=== PATIENT | female | born 1965 | race Caucasian/White ===

== ENCOUNTER → 2018-07-08 | Outpatient (CLI) | payer BC ==
--- NOTE | 2018-07-08 16:59 | MR ---
EXAMINATION TYPE: MR brain wo con DATE OF EXAM: 07/08/2018 COMPARISON: NONE HISTORY: no prior, bilateral headaches TECHNIQUE: Multiplanar, multisequence images of the brain and brainstem is performed without IV contrast. FINDINGS: Diffusion weighted images demonstrate no evidence of a recent infarct or other diffusion ab normality. There is no extra-axial fluid collection. There is moderate burden nonspecific white fidel er change given the patient's age. The largest is seen within the right frontal lobe measuring 7 x 4 mm, and a subcortical location. The largest on the left is seen within the left parietal lobe measuri ng 5 x 5 mm on FLAIR and axial fat sat image 21. These predominate in a subcortical distribution and within the deep white matter although there are few periventricular foci present. The ventricular sys tem and cisternal spaces are normal in size and appearance. The brain volume is age appropriate. Midline structures demonstrate normal morphology. The craniocervical junction appears within normal limits. The dural venous sinuses appear patent. The visualized sinuses are clear and the globes are intact. IMPRESSION: 1. Moderate burden nonspecific white matter change. Although the differential is broad these most com monly related to demyelinating disease, sequela of microangiopathy or vasculitis. 2. No evidence of acute infarct, midline shift or mass effect.
== END | disposition home or self-care (01) ==
LOC: RADMRIMAIN 13:10
PROVIDERS: ATTEND Nurse Practitioner
DX: R90.89 Other abnormal findings on diagnostic imaging of central nervous system (principal); R51 Headache
CPT/HCPCS: 70551

== ENCOUNTER → 2019-09-21 | Outpatient (CLI) | payer OTHER ==
--- NOTE | 2019-09-21 10:54 | XR ---
EXAMINATION TYPE: XR abdomen 1V DATE OF EXAM: 09/21/2019 10:35 AM CLINICAL HISTORY: Left-sided nephrolithiasis TECHNIQUE: Single supine KUB image of the abdomen is obtained. COMPARISON: None. FINDINGS: There is a large calculus measuring 1.9 cm overlying the left renal shadow. Calculus overli es the right renal shadow measuring 0.6 cm. Small phleboliths are present within the the low pelvis. Moderate degree colonic fecal stasis. Cholecystectomy clips noted. No acute osseous pathology. Degene rative change of the spine at the lumbosacral junction is mild. IMPRESSION: Bilateral nephrolithiasis with calculus on the left measuring 1.9 cm and on the right anjana suring 0.6 cm.
== END | disposition home or self-care (01) ==
LOC: RADXRMAIN 10:21
PROVIDERS: ATTEND Urology
DX: N20.0 Calculus of kidney (principal)
CPT/HCPCS: 74018

== ENCOUNTER → 2019-10-01 | Outpatient (CLI) | payer OTHER ==
--- NOTE | 2019-10-01 11:05 | CT ---
EXAMINATION TYPE: CT abdomen pelvis wo con DATE OF EXAM: 10/01/2019 HISTORY: bilateral flank pain, history of known stones. CT DLP: 303.8 mGycm. Automated Exposure Control for Dose Reduction was Utilized. TECHNIQUE: CT scan of the abdomen and pelvis is performed without oral or IV contrast. COMPARISON: Abdominal x-ray September 21, 2019 FINDINGS: Within the limitations of a non-contrast study, the following observations are made. LUNG BASES: No significant abnormality is appreciated. LIVER/GB: Cholecystectomy clips are redemonstrated. PANCREAS: No significant abnormality is seen. SPLEEN: No significant abnormality is seen. ADRENALS: No significant abnormality is seen. KIDNEYS: Confirmation of roughly 17 mm calculus left kidney midpole level central pelvis coronal imag e 49. There are roughly 5 additional scattered calculi throughout the left kidney mid to lower pole l evel up to 6 mm in size axial image 56. There is 6 to 7 mm calculus mid to lower pole of the right ki dney coronal image 48 correlating with x-ray. There is asymmetric mild left-sided hydronephrosis. No significant hydroureter bilaterally. BOWEL: No significant abnormality is seen. GENITAL ORGANS: Uterus surgically absent or markedly atrophic with occasional scattered pelvic phlebo liths. LYMPH NODES: No greater than 1cm abdominal or pelvic lymph nodes are appreciated. OSSEOUS STRUCTURES: No significant abnormality is seen. OTHER: No significant additional abnormality is seen. IMPRESSION: Bilateral nephrolithiasis as detailed above. Confirmation of 17 mm central left renal pel sarbjit calculus causing asymmetric mild left-sided hydronephrosis.
== END | disposition home or self-care (01) ==
LOC: RADCTMAIN 10:35
PROVIDERS: ATTEND Urology
DX: N20.0 Calculus of kidney (principal); R10.9 Unspecified abdominal pain
CPT/HCPCS: 74176

== ENCOUNTER → 2019-10-10 | Outpatient (CLI) | payer OTHER ==
[2019-10-10 12:58] LABS: Basophils % (A) 0 %; Eosinophils # (A) 0.4 k/uL (0-0.7); Eosinophils % (A) 3 %; HCT 43.2 % (34.0-46.0); HGB 13.6 gm/dL (11.4-16.0); Lymphocytes # (A) 3.3 k/uL (1.0-4.8); Lymphocytes % (A) 22 %; MCH 29.6 pg (25.0-35.0); MCHC 31.4 g/dL (31.0-37.0); MCV 94.3 fL (80.0-100.0); Mean Platelet Volume 7.5; Monocytes # (A) 0.5 k/uL (0-1.0); Monocytes % (A) 4 %; Neutrophils # (A) 10.4 k/uL (1.3-7.7); Neutrophils % (A) 70 %; Platelet Count 293 k/uL (150-450); RBC 4.58 m/uL (3.80-5.40); WBC 14.8 k/uL (3.8-10.6)
[2019-10-10 13:17] LABS: ALT 13 U/L (4-34); AST 20 U/L (14-36); African American GFR (CKD) >90 (>60 ml/min/1.73 sqM); Albumin 4.6 g/dL (3.5-5.0); Alkaline Phosphatase 80 U/L (38-126); Amorphous Sediment,Urine Few /hpf; Anion Gap 8 mmol/L; Appearance,Urine Turbid (Clear); Bacteria,Urine Rare /hpf; Bilirubin,Urine Negative (Negative); Blood Urea Nitrogen 11 mg/dL (7-17); Blood,Urine Small (Negative); Calcium 9.7 mg/dL (8.4-10.2); Carbon Dioxide 25 mmol/L (22-30); Chloride 107 mmol/L (98-107); Color,Urine Yellow; Glucose 92 mg/dL (74-99); Glucose,Urine (UA) Negative (Negative); Ketones,Urine Negative (Negative); Leukocyte Esterase,Urine Trace (Negative); Mucus,Urine Rare /hpf; Nitrite,Urine Negative (Negative); Non-African American GFR(CKD) 88 (>60 ml/min/1.73 sqM); Potassium 4.3 mmol/L (3.5-5.1); Protein,Urine Trace (Negative); RBC,Urine 25 /hpf (0-5); Sodium 140 mmol/L (137-145); Specific Gravity,Urine 1.013 (1.001-1.035); Total Bilirubin 0.4 mg/dL (0.2-1.3); Total Protein 7.3 g/dL (6.3-8.2); Urobilinogen,Urine <2.0 mg/dL (<2.0); WBC,Urine 9 /hpf (0-5)
== END | disposition home or self-care (01) ==
LOC: LABPAT 10:32
PROVIDERS: ATTEND Urology
DX: Z01.818 Encounter for other preprocedural examination (principal); N20.0 Calculus of kidney; R31.0 Gross hematuria
CPT/HCPCS: 80053; 81001; 85025; 87086

== ENCOUNTER 2019-10-17 06:37 | Day surgery (SDC) | payer OTHER ==
[2019-10-15 13:34] VITALS: BMI 25.4
--- NOTE | 2019-10-16 09:42 | P.GSHP ---
History of Present Illness H&P Date: 10/16/19 54 yo female with a 17 mm renal pelvic stone left with multiple small satellites comes for a left pcnl to remove these symptomatic stones. We discussed all the treatment options to rid her of her painful stone and we have decided on pcnl left. The risks and complications have been discussed. - Constitutional Constitutional: Denies chills, Denies fever - EENT Eyes: denies blurred vision, denies pain Ears, nose, mouth and throat: Denies headache, Denies sore throat - Cardiovascular Cardiovascular: Denies chest pain, Denies shortness of breath - Respiratory Respiratory: Denies cough, Denies 7 - Gastrointestinal Gastrointestinal: Denies abdominal pain, Denies diarrhea, Denies nausea, Denies vomiting - Genitourinary (Female) Genitourinary: Denies dysuria, Denies hematuria - Genitourinary (Male) Genitourinary: Denies dysuria, Denies hematuria - Musculoskeletal Musculoskeletal: Denies myalgias - Integumentary Integumentary: Denies pruritus, Denies rash - Neurological Neurological: Denies numbness, Denies weakness - Psychiatric Psychiatric: Denies anxiety, Denies depression - Endocrine Endocrine: Denies fatigue, Denies weight change Past Medical History Additional Past Medical History / Comment(s): kidney stone, hx of migraines, daily headaches, states hx of lesions on brain that are benign History of Any Multi-Drug Resistant Organisms: None Reported Past Surgical History: Cholecystectomy, Hysterectomy, Orthopedic Surgery, Tonsillectomy Additional Past Surgical History / Comment(s): lithotripsies, rt trigger thumb Past Anesthesia/Blood Transfusion Reactions: No Reported Reaction Smoking Status: Current every day smoker - Past Family History Father Family Medical History: Cancer Additional Family Medical History / Comment(s): prostate Sister(s) Family Medical History: Cancer Additional Family Medical History / Comment(s): breast Medications and Allergies Home Medications Medication Instructions Recorded Confirmed Type Cannabidiol (Cbd) Extract 1 applic PO DAILY PRN 10/15/19 10/15/19 History [Epidiolex] Cholecalciferol [Vitamin D3 (25 1,000 unit PO DAILY 10/15/19 10/15/19 History Mcg = 1000 Iu)] HYDROcodone/APAP 7.5-325MG [Glen 1 tab PO Q6HR PRN 10/15/19 10/15/19 History 7.5-325] Bastian-3 Fatty Acids/Fish Oil [Fish 1 each PO DAILY 10/15/19 10/15/19 History Oil 1,000 mg Softgel] Topiramate [Topamax] 50 mg PO BID 10/15/19 10/15/19 History traZODone HCL 50 mg PO HS 10/15/19 10/15/19 History Allergies Allergy/AdvReac Type Severity Reaction Status Date / Time No Known Allergies Allergy Verified 10/15/19 13:23 Surgical - Exam - General well developed, well nourished, no distress - Eyes PERRL - ENT no hearing loss - Neck trachea midline - Respiratory normal expansion, normal respiratory effort - Cardiovascular Rhythm: regular - Abdomen Abdomen: soft, non tender - Integumentary no rash, no growths - Neurologic normal coordination, normal sensation - Musculoskeletal normal gait, normal posture - Psychiatric oriented to time, oriented to person, oriented to place, speech is normal, memory intact Results - Imaging CT scan - abdomen: report reviewed, image reviewed CT scan - pelvis: report reviewed, image reviewed Assessment and Plan Assessment: Impression: Left renal stone Plan: PCNL left
[~2019-10-17 06:37] MED LIST: HYDROmorphone 0.5 MG/0.5 ML SYRINGE IVP PRN; fentaNYL (PF) 50 MCG/ML 2 ML AMP IV PRN
[2019-10-17] MEDS ORDERED: ONDANSETRON 4 MG/2 ML VIAL IVP ONE (07:20)
[2019-10-17] MEDS ORDERED: DEXAMETHASONE SOD PHOSPHATE 10 MG/ML 1 ML VIAL IV ONE (07:20)
[2019-10-17] MEDS: LACTATED RINGERS 1,000 ML IV SCH (07:20)
[2019-10-17] MEDS ORDERED: LIDOCAINE 1% (10MG/ML) FOR IV START INTRADERMA ONE (07:20)
--- NOTE | 2019-10-17 07:49 | XR ---
EXAMINATION TYPE: XR KUB DATE OF EXAM: 10/17/2019 6:52 AM CLINICAL HISTORY: Kidney stone and flank pain. TECHNIQUE: Single supine KUB image of the abdomen is obtained. COMPARISON: CT abdomen and pelvis October 01, 2019. Abdominal x-ray September 21, 2019. FINDINGS: Redemonstration of dominant 18 mm calculus centrally in the left kidney. 2-3 smaller irregu lar calculi lower pole level left kidney are redemonstrated. Tiny calculi on CT less well-seen. Persistent 6 to 7 mm round calculus right kidney midpole level. Cholecystectomy clips redemonstrated. Overall nonobstructive bowel gas pattern. Osseous structures ar e intact. IMPRESSION: Stable left greater than right nephrolithiasis as detailed above.
[2019-10-17] MEDS ORDERED: GLYCOPYRROLATE 0.2 MG/ML 2 ML VIAL ONE (07:55)
[2019-10-17] MEDS ORDERED: ROCURONIUM BROMIDE 10 MG/ML 5 ML VIAL IV ONE (07:55)
[2019-10-17] MEDS ORDERED: NEOSTIGMINE 1 MG/ML 10 ML VIAL ONE (07:55)
[2019-10-17] MEDS ORDERED: SUCCINYLCHOLINE CHLORIDE 100 MG/5 ML SYR IV ONE (07:55)
[2019-10-17] MEDS ORDERED: PROPOFOL 10 MG/ML 20 ML VIAL IV ONE (07:55)
[2019-10-17] MEDS ORDERED: MIDAZOLAM 2 MG/2 ML VIAL ONE (07:55)
[2019-10-17] MEDS ORDERED: fentaNYL (PF) 50 MCG/ML 2 ML AMP ONE (07:55)
[2019-10-17] MEDS ORDERED: LIDOCAINE 1% INJ 10MG/ML (20 ML MDV) ONE (07:55)
[2019-10-17] MEDS ORDERED: IOPAMIDOL-370 50ML BTL MISCELLANE ONE (08:12)
[2019-10-17] MEDS ORDERED: ALPRAZolam 0.25 MG TAB PO PRN (09:48)
[2019-10-17] MEDS ORDERED: ONDANSETRON 4 MG/2 ML VIAL IVP PRN (09:49)
[2019-10-17] MEDS ORDERED: ACETAMINOPHEN TAB 325 MG TAB PO PRN (09:49)
[2019-10-17] MEDS ORDERED: MAG HYDROX/AL HYDROX/SIMETH 30 ML CUP PO PRN (09:49)
[2019-10-17] MEDS ORDERED: NALOXONE 0.4 MG/ML 1 ML VIAL IV PRN (09:51)
[2019-10-17] MEDS ORDERED: HYDROmorphone PCA 10 MG/50 ML BAG IV PRN (09:51)
[2019-10-17] MEDS ORDERED: KETOROLAC 30 MG/ML 1 ML VIAL IVP PRN (09:51)
--- NOTE | 2019-10-17 09:59 | P.OP ---
Date of Procedure: 10/17/19 Preoperative Diagnosis: left renal stone Postoperative Diagnosis: left renal stone Procedure(s) Performed: cysto, left ureteral cath placement, Lt percutanous nephrostolithotomy with us, placement of 10 fr n tube Anesthesia: MONICA Surgeon: Reyes Orozco Estimated Blood Loss (ml): 50 Pathology: other (Stone) Condition: stable Disposition: PACU Indications for Procedure: The patient is 54. She has a 17-18 mm left renal stone with some small lower pole calyceal satellites. She comes for percutaneous nephrostolithotomy because of pain Description of Procedure: Patient brought to the operating suite. Given general anesthesia. Placed in a frog position on the transport gurney with a sterile prep and drape. Cystoscopy 22-Portuguese sheath and Foroblique lens identifies a normal urethra. The left ureteral orifice is identified and intubated with a 5-Portuguese occluding balloon catheter. It is secured to a 16-Portuguese Rojas. The patient's placed in a prone position to care to airways and extremities. A sterile prep and drape was administered. Dr. Oneal of radiology performed percutaneous access to the left middle pole calyx. The track was dilated to 30- Portuguese. Through the 30-Portuguese sheath and introducer rigid instruments in the large renal pelvic stone was identified. It is broken and removed using ultrasound and graspers. Do an intraoperative nephrostogram and intraoperative nephroscopy. I do not see any remaining stone. I'm unable to get into the left lower pole calyx as the infundibulum is not identifiable and is extremely tiny based on the nephrostogram. The stone small so I will leave alone unless it becomes symptomatic. There is no remaining visible stone. The nephrostogram and fluoroscopy does not really identify the lower pole stone that was seen on computed tomography scan. A 10-Portuguese J nephrostomy tube was placed in the renal pelvis confirmed fluoroscopically. It is secured to the skin with 2-0 silk. It drained freely. The patient awake and returned recovery in good condition. Blood loss is approximately 50 mL. She'll be observed in the hospital overnight. Condition is good.
--- NOTE | 2019-10-17 10:08 | FL ---
EXAMINATION TYPE: FL Perc Nephrostomy New Access DATE OF EXAM: 10/17/2019 COMPARISON: CT 10/01/2019 HISTORY: Left nephrolithiasis PROCEDURE: Maximal barrier technique was utilized, hand hygiene obtained with soap and water and alcohol-based h and rub. The skin overlying the left kidney was localized using fluoroscopy and the overlying skin p repped and draped. Skin gaurav was made with a scalpel. Access was gained under fluoroscopy, following placement of a ureteral occlusion balloon by the referring clinician and instillation of air in the renal collecting system with a 21-gauge needle to the left kidney. A suitable posterior calyx was ch osen. A 0.018 inch wire was advanced. The access site was dilated , access site was upsized, urete r was selected with a 5 [place] Kumpe catheter and 0.035 inch angled Glidewire, sheath was advanced, s afety wire deployed and subsequently a sheath was advanced into the renal pelvis following dilation w ith balloon along the tract. The patient underwent nephrolithotomy by the referring clinician. The patient remained in stable condition without complication. The patient was discharged to observation in the care of anesthesia. 3 minutes 36 seconds fluoroscopy time, 5 intraoperative images document the procedure IMPRESSION: STATUS POST NEPHROSTOMY PLACEMENT FOR NEPHROLITHOTOMY WITH FLUOROSCOPIC GUIDANCE. THIS PROCEDURE PER FORMED BY THE UNDERSIGNED.
[2019-10-17] MEDS: DEXTROSE 5%-0.45% NACL 1,000 ML IV SCH ×2 (11:30→20:56)
[2019-10-17] MEDS ORDERED: traZODone HCL 100 MG TAB PO SCH (21:00)
[2019-10-17] MEDS: TOPIRAMATE 25 MG TAB PO SCH (21:44)
[2019-10-18] MEDS: DEXTROSE 5%-0.45% NACL 1,000 ML IV SCH (03:59)
[2019-10-18 04:37] VITALS: TEMP 97.7
[2019-10-18] MEDS: LACTATED RINGERS 1,000 ML IV SCH (06:12)
[2019-10-18] MEDS ORDERED: HYDROcodone/APAP 5-325MG 1 EACH TAB PO PRN (06:50)
--- NOTE | 2019-10-18 06:52 | P.DS ---
Providers Attending physician: Reyes Orozco Primary care physician: [facility] Course: Patient was admitted 10/17/2019 for left percutaneous nephrostolithotomy to a large left renal pelvic stone. This was done without problems. Postoperatively she did well with no fever. Pain was controlled with pain medicine. Urine is cleared. She is tolerating regular diet. I'll discontinue the IV Rojas and intravenous narcotics. If she does well she'll be discharged home later today. She'll follow-up in the office on Tuesday for catheter removal. Condition is good. Postoperative instructions were given. She was given a prescription of [place] upon discharge. Patient Condition at Discharge: Good Plan - Discharge Summary Discharge Rx Participant: Yes New Discharge Prescriptions: New HYDROcodone/APAP 5-325MG [[place] 5-325] 1 tab PO Q4HR PRN #14 tab PRN Reason: Pain No Action Cholecalciferol [Vitamin D3 (25 Mcg = 1000 Iu)] 1,000 unit PO DAILY Topiramate [Topamax] 50 mg PO BID HYDROcodone/APAP 7.5-325MG [[place] 7.5-325] 1 tab PO Q6HR PRN PRN Reason: Pain traZODone HCL 50 mg PO HS Currie-3 Fatty Acids/Fish Oil [Fish Oil 1,000 mg Softgel] 1 each PO DAILY Cannabidiol (Cbd) Extract [Epidiolex] 1 applic PO DAILY PRN PRN Reason: Pain ALPRAZolam [Xanax] 1 tab PO Q12HR PRN PRN Reason: Anxiety Discharge Medication List Cannabidiol (Cbd) Extract [Epidiolex] 1 applic PO DAILY PRN 10/15/19 [History] Cholecalciferol [Vitamin D3 (25 Mcg = 1000 Iu)] 1,000 unit PO DAILY 10/15/19 [History] HYDROcodone/APAP 7.5-325MG [[place] 7.5-325] 1 tab PO Q6HR PRN 10/15/19 [History] Currie-3 Fatty Acids/Fish Oil [Fish Oil 1,000 mg Softgel] 1 each PO DAILY 10/15/19 [History] Topiramate [Topamax] 50 mg PO BID 10/15/19 [History] traZODone HCL 50 mg PO HS 10/15/19 [History] ALPRAZolam [Xanax] 1 tab PO Q12HR PRN 10/17/19 [History] HYDROcodone/APAP 5-325MG [[place] 5-325] 1 tab PO Q4HR PRN #14 tab 10/18/19 [Rx] Follow up Appointment(s)/Referral(s): Reyes Orozco MD [STAFF PHYSICIAN] - 10/22/19 8:00 am (for nephrostomy tube removal) Discharge Disposition: HOME SELF-CARE
[2019-10-18] MEDS: TOPIRAMATE 25 MG TAB PO SCH (08:17)
[2019-10-18 08:51] VITALS: BP 92/61; PULSE 53; RESP 16
== END 2019-10-18 11:12 | disposition home or self-care (01) ==
LOC: OR 06:37 → 4SSUR 09:35 → OR 10-18 11:12
PROVIDERS: ATTEND Urology
DX: N20.0 Calculus of kidney (principal); F17.200 Nicotine dependence, unspecified, uncomplicated; G43.909 Migraine, unspecified, not intractable, without status migrainosus; Z79.899 Other long term (current) drug therapy; Z90.710 Acquired absence of both cervix and uterus; Z90.49 Acquired absence of other specified parts of digestive tract; Z90.89 Acquired absence of other organs; Z98.890 Other specified postprocedural states; Z80.42 Family history of malignant neoplasm of prostate; Z80.3 Family history of malignant neoplasm of breast
CPT/HCPCS: 94760; 94762; 86900; 86901; 86850; 82365; 50432; 74018; 50080; C1769 ×4; C1894; C1729; J2250; J1100; J2710; J2405; J0690; J2001; J3010; J0330; J2704; Q9967; J1170